=== PATIENT | male | born 1975 | race Caucasian/White ===

== ENCOUNTER 2018-01-27 13:53 | Emergency (ER) | payer OTHER, SELFPAY ==
[2018-01-27] MEDS ORDERED: HYDROcodone/Acetaminophen 10/325 mg Tablet ONE (14:27)
[2018-01-27] MEDS ORDERED: Naproxen 500 MG TAB ONE (14:27)
[2018-01-27] MEDS ORDERED: diphenhydrAMINE 25 MG CAP ONE (14:27)
[2018-01-27] MEDS ORDERED: Ondansetron ODT 4 MG TAB ONE (15:08)
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
== END 2018-01-27 16:50 | disposition left against medical advice (07) ==
LOC: MADERS 13:53
DX: M54.5 Low back pain (principal); F17.200 Nicotine dependence, unspecified, uncomplicated
CPT/HCPCS: 72131; Q0162